=== PATIENT | female | born 1995 | race Caucasian/White ===

== ENCOUNTER 2021-08-04 17:10 | Inpatient (IN) | payer OTHER ==
[2021-08-04] MEDS ORDERED: ELECTROLYTE-148 SOLN 1,000 ML IV SCH (17:30)
[2021-08-04] MEDS ORDERED: AMPICILLIN - 2 GM in SODIUM CHLORIDE 100 ML IVPB ONE (17:30)
[2021-08-04 18:41] LABS: BASO % 0.4 % (0-2.0); EOS % 0.7 % (0-4.5); HEMATOCRIT 37.4 % (32.4-45.2); HEMOGLOBIN 12.3 GM/dL (10.7-15.3); LYMPH % 17.7 % (8-40); MCH 28.7 pg (25.7-33.7); MEAN CELL VOLUME 86.9 fl (80-96); MEAN PLT VOLUME 8.1 fl (7.5-11.1); MONO % 4.4 % (3.8-10.2); NEUT % 76.8 % (42.8-82.8); PLATELET COUNT 200 10^3/uL (134-434); RDW 13.9 % (11.6-15.6); WHITE BLOOD COUNT 14.4 K/mm3 (4.0-10.0)
[2021-08-04 19:02] LABS: CALCIUM 8.9 mg/dL (8.5-10.1)
[2021-08-04 19:03] LABS: BLOOD UREA NITROGEN 14.7 mg/dL (7-18)
[2021-08-04 19:04] LABS: ACTIVATED PTT 28.6 SECONDS (25.2-36.5); INR 0.85 (0.83-1.09); PROTHROMBIN TIME (PATIENT) 9.8 SEC (9.7-13.0)
[2021-08-04 19:06] LABS: CREATININE 0.7 mg/dL (0.55-1.3)
[2021-08-04 20:07] LABS: CORD BASE EXCESS -5.3 mmol/L (0-2); CORD HCO3 22.3 mmHg (20-29); CORD PCO2 50.5 mmHg (30-78); CORD pH 7.262 (7.14-7.44)
[2021-08-04 20:10] LABS: CORD BASE EXCESS -3.9 mmol/L (0-2); CORD HCO3 25.2 mmHg (20-29); CORD PCO2 62.4 mmHg (30-78); CORD pH 7.224 (7.14-7.44)
[2021-08-04 20:25] LABS: OPIATES, URI NEGATIVE (NEGATIVE)
[2021-08-04 20:26] LABS: COCAINE, UR NEGATIVE (NEGATIVE); METHADONE, UR NEGATIVE (NEGATIVE); PHENCYCLIDINE,URINE NEGATIVE (NEGATIVE); URINE BARBITURATES NEGATIVE (NEGATIVE)
[2021-08-04 20:27] LABS: URINE BENZODIAZEPINES NEGATIVE (NEGATIVE)
[2021-08-04 20:35] LABS: URINE AMPHETAMINES NEGATIVE (NEGATIVE)
[2021-08-04] MEDS ORDERED: METHYLERGONOVINE MALEATE 0.2 MG/1 ML AMP IM ONE (21:00)
[2021-08-04] MEDS ORDERED: OXYTOCIN 20 UNITS in 0.9% NS 20 UNIT/1,000 ML INFUS.BAG IV ONE (21:00)
[2021-08-04] MEDS ORDERED: METHYLERGONOVINE MALEATE 0.2 MG/1 ML AMP IM PRN (21:54)
[2021-08-04] MEDS ORDERED: BENZOCAINE 28 GM HEMORRHOIDAL OINTMENT TP PRN (21:54)
[2021-08-04] MEDS ORDERED: BENZOCAINE 20% 57 GM BOTTLE TP PRN (21:54)
[2021-08-04] MEDS ORDERED: WITCH HAZEL 50% (TUCKS) 40 PAD/JAR PAD TP PRN (21:54)
[2021-08-04] MEDS ORDERED: IBUPROFEN 600 MG TABLET (FP) PO PRN (21:54)
[2021-08-04] MEDS ORDERED: BISACODYL 10 MG SUPP.RECT RC PRN (21:54)
[2021-08-04] MEDS ORDERED: oxyCODONE HCL 5 MG TABLET PO PRN (21:54)
[2021-08-04] MEDS ORDERED: ACETAMINOPHEN 325 MG TABLET (FP) PO PRN (21:54)
[2021-08-05] MEDS: AMPICILLIN - 1 GM in SODIUM CHLORIDE 100 ML IVPB SCH (02:40)
[2021-08-05] MEDS: OXYTOCIN 20 UNITS in 0.9% NS 20 UNIT/1,000 ML INFUS.BAG IV SCH ×2 (05:20)
[2021-08-05 07:22] LABS: BASO % 0.2 % (0-2.0); EOS % 0.3 % (0-4.5); HEMATOCRIT 27.8 % (32.4-45.2); HEMOGLOBIN 9.2 GM/dL (10.7-15.3); LYMPH % 15.3 % (8-40); MCH 28.7 pg (25.7-33.7); MCHC 33.1 g/dl (32.0-36.0); MEAN CELL VOLUME 86.8 fl (80-96); MEAN PLT VOLUME 7.9 fl (7.5-11.1); MONO % 6.2 % (3.8-10.2); PLATELET COUNT 167 10^3/uL (134-434); WHITE BLOOD COUNT 17.8 K/mm3 (4.0-10.0)
[2021-08-05] MEDS ORDERED: SENNOSIDES/DOCUSATE COMBO (SENNA PLUS) TABLET (UD) PO PRN (22:00)
[2021-08-06 08:06] LABS: POC NITRAZINE POS
[2021-08-06 11:53] VITALS: BP 116/64; PULSE 93; TEMP 98.5
== END 2021-08-06 13:30 | disposition home or self-care (01) | DRG 560 ==
LOC: JLDR 17:10 → J3W 22:00
PROVIDERS: ADMIT Family Medicine; ATTEND Family Medicine
PROC: 0KQM0ZZ Repair Perineum Muscle, Open Approach (ICD-10-PCS; principal; 2021-08-04)
PROC: 10E0XZZ Delivery of Products of Conception, External Approach (ICD-10-PCS; 2021-08-04)
DX: O70.1 Second degree perineal laceration during delivery (principal); Z3A.39 39 weeks gestation of pregnancy; Z37.0 Single live birth
CPT/HCPCS: 36415; 36600; 59409; 80048; 80307; 82803; 83986-QW; 85025; 85610; 85730; 86780; 86850; 86900; 86901; C9803-CS; U0003; U0005